=== PATIENT | male | born 1975 | race African-American/Black ===

== ENCOUNTER 2018-12-10 12:24 | Inpatient (IN) | payer BC ==
[2018-12-10] MEDS ORDERED: NORMAL SALINE 1000 ML 1,000 ML IV ONE (12:42)
--- NOTE | 2018-12-10 12:43 | ER Document Report ---
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 - Vital Signs Vital signs: Temp Pulse Resp BP Pulse Ox 98.7 F 75 18 154/84 H 96 12/10/18 12:38 12/10/18 12:38 12/10/18 12:38 12/10/18 12:38 12/10/18 12:38 - Laboratory Result Diagrams: 12/10/18 12:51 12/10/18 12:51 Laboratory results interpreted by me: 12/10/18 12/10/18 12:51 12:51 WBC 10.7 H Urine Ketones TRACE H Urine Urobilinogen 2.0 H Urine Ascorbic Acid 40 H Original Note: ED Medical Screen (RME) - General Chief Complaint: Abdominal Pain Stated Complaint: ABDOMINAL PAIN Time Seen by Provider: 12/10/18 12:41 Primary Care Provider: DESHAWN ÁLVAREZ [Primary Care Provider] - Follow up as needed Mode of Arrival: Ambulatory Information source: Patient Notes: Patient presents with lower pelvic pain that started yesterday. Patient states pain has been constant. Patient does report some discomfort with voiding although denies any penile symptoms. Patient denies any scrotal pain. Patient denies any nausea vomiting diarrhea or fever. Her last bowel movement was today and was normal. Patient with decreased appetite. I have greeted and performed a rapid initial assessment of this patient. A comprehensive ED assessment and evaluation of the patient, analysis of test results and completion of the medical decision making process will be conducted by additional ED providers. TRAVEL OUTSIDE OF THE [place] IN LAST 30 DAYS: No - Related Data Allergies/Adverse Reactions: No Known Allergies Allergy (Verified 12/10/18 12:25) Past Medical History - Social History Chew tobacco use (# tins/day): No Frequency of alcohol use: None Drug Abuse: None Renal/ Medical History: Denies: Hx Peritoneal Dialysis Physical Exam - Vital signs Vitals: Temp Pulse Resp BP Pulse Ox 98.7 F 75 18 154/84 H 96 12/10/18 12:38 12/10/18 12:38 12/10/18 12:38 12/10/18 12:38 12/10/18 12:38 - General General appearance: Appears well, Alert Notes: Suprapubic, right lower pelvic tenderness Course - Vital Signs Vital signs: Temp Pulse Resp BP Pulse Ox 98.7 F 75 18 154/84 H 96 12/10/18 12:38 12/10/18 12:38 12/10/18 12:38 12/10/18 12:38 12/10/18 12:38 Doctor's Discharge - Discharge Referrals: LOCALMD,NO [Primary Care Provider] - Follow up as needed
[2018-12-10] MEDS ORDERED: KETOROLAC TROMETHAMINE 60 MG/2 ML SDV ONE (12:47)
[2018-12-10] MEDS ORDERED: SUCCINYLCHOLINE CHLORIDE INJ 200 MG/10 ML VIAL ONE (12:47)
[2018-12-10] MEDS ORDERED: ROCURONIUM BROMIDE INJ 50 MG/5 ML VIAL IV ONE (12:47)
[2018-12-10 13:04] LABS: ABSOLUTE BASOPHILS # (AUTO) 0.1 10^3/uL (0.0-0.2); ABSOLUTE EOSINOPHILS # (AUTO) 0.2 10^3/uL (0.0-0.6); ABSOLUTE LYMPHOCYTES (AUTO) 3.1 10^3/uL (0.5-4.7); ABSOLUTE NEUT (AUTO) 6.3 10^3/uL (1.7-8.2); BASOPHILS % (AUTO) 0.6 % (0-2); EOSINOPHILS % (AUTO) 1.8 % (0-6); HEMATOCRIT 44.8 % (37.9-51.0); HEMOGLOBIN 15.4 g/dL (13.5-17.0); LYMPHOCYTES % (AUTO) 29.4 % (13-45); MEAN CORPUSCULAR HEMOGLOBIN 28.9 pg (27.0-33.4); MEAN CORPUSCULAR HGB CONC 34.4 g/dL (32.0-36.0); MEAN CORPUSCULAR VOLUME 84 fl (80-97); MONOCYTES % (AUTO) 9.2 % (3-13); PLATELET COUNT 166 10^3/uL (150-450); RED BLOOD COUNT 5.33 10^6/uL (4.35-5.55); RED CELL DISTRIBUTION WIDTH 13.5 % (11.5-14.0); TOTAL CELLS COUNTED % (AUTO) 100 %; WHITE BLOOD COUNT 10.7 10^3/uL (4.0-10.5)
[2018-12-10 13:21] LABS: APPEARANCE,URINE CLEAR; BILIRUBIN,URINE NEGATIVE (NEGATIVE); COLOR,URINE YELLOW; GLUCOSE, URINE NEGATIVE (NEGATIVE); KETONES,URINE TRACE mg/dL (NEGATIVE); LEUKOCYTE ESTERASE,URINE NEGATIVE (NEGATIVE); NITRITE,URINE NEGATIVE (NEGATIVE); PROTEIN,URINE NEGATIVE (NEGATIVE); URINE SPECIFIC GRAVITY 1.027
[2018-12-10 13:29] LABS: ALANINE AMINOTRANSFERASE 28 U/L (21-72); ALBUMIN 4.3 g/dL (3.5-5.0); ALKALINE PHOSPHATASE 68 U/L (38-126); ANION GAP 8 (5-19); ASPARTATE AMINO TRANSFERASE 30 U/L (17-59); BILIRUBIN,DIRECT 0.2 mg/dL (0.0-0.4); BILIRUBIN,TOTAL 1.2 mg/dL (0.2-1.3); BLOOD UREA NITROGEN 16 mg/dL (7-20); CALCIUM 9.2 mg/dL (8.4-10.2); CARBON DIOXIDE 26 mmol/L (22-30); CHLORIDE 106 mmol/L (98-107); GLUCOSE 98 mg/dL (75-110); POTASSIUM 3.9 mmol/L (3.6-5.0); SODIUM 140.2 mmol/L (137-145); TOTAL PROTEIN 7.1 g/dL (6.3-8.2)
--- NOTE | 2018-12-10 13:50 | RADIOLOGY REPORT (SQ) ---
EXAM DESCRIPTION: CT ABD/PELVIS WITH IV ONLY COMPLETED DATE/TIME: 12/10/2018 1:30 pm REASON FOR STUDY: pelvic, RLQ pain COMPARISON: None. TECHNIQUE: CT scan of the abdomen and pelvis performed using helical scanning technique with dynamic intravenous contrast injection. No oral contrast. Images reviewed with lung, soft tissue, and bone windows. Reconstructed coronal and sagittal MPR images reviewed. Delayed images for evaluation of the urinary system also acquired. All images stored on PACS. All CT scanners at this facility use dose modulation, iterative reconstruction, and/or weight based d osing when appropriate to reduce radiation dose to as low as reasonably achievable (ALARA). [facility]: Dose Right [facility]: CareDose [facility]: Dose Right [facility]: Teradose 4D [facility]: Ketto CONTRAST TYPE AND DOSE: contrast/concentration: Isovue 350.00 mg/ml; Total Contrast Delivered: 99.0 ml; Total Saline Delivered: 70.0 ml RENAL FUNCTION: None required. The patient is less than 50 years old. RADIATION DOSE: CT Rad equipment meets quality standard of care and radiation dose reduction techniq ues were employed. CTDIvol: 8.7 - 12.5 mGy. DLP: 1090 mGy-cm.. LIMITATIONS: None. FINDINGS: The appendix is mildly diffusely enlarged, measuring about 10 mm in diameter. This could indicate acute appendicitis. Findings discussed with Elissa castrejon in the emergency room, 1340 hour s. No periappendiceal free air or fluid. No abscess. LOWER CHEST: No significant findings. No nodules or infiltrates. LIVER: Normal size. No masses. No dilated ducts. SPLEEN: Normal size. No focal lesions. PANCREAS: No masses. No significant calcifications. No adjacent inflammation or peripancreatic fluid collections. Pancreatic duct not dilated. GALLBLADDER: No identified stones by CT criteria. No inflammatory changes to suggest cholecystitis. ADRENAL GLANDS: No significant masses or asymmetry. RIGHT KIDNEY AND URETER: No solid masses. No significant calcifications. No hydronephrosis or hyd roureter. LEFT KIDNEY AND URETER: No solid masses. No significant calcifications. No hydronephrosis or hydr oureter. AORTA AND VESSELS: No aneurysm. No dissection. Renal arteries, SMA, celiac without stenosis. RETROPERITONEUM: No retroperitoneal adenopathy, hemorrhage or masses. BOWEL AND PERITONEAL CAVITY: No masses or inflammatory changes. No free fluid or peritoneal masses. PELVIS: No mass. No free fluid. Normal bladder. ABDOMINAL WALL: No masses. No hernias. BONES: No significant or acute findings. OTHER: No other significant finding. IMPRESSION: Mildly diffusely enlarged appendix, could correlate with acute appendicitis. Findings d iscussed with the ED attending practitioner TECHNICAL DOCUMENTATION: JOB ID: [id number] Quality ID # [id number]: Final reports with documentation of one or more dose reduction techniques (e.g., Au tomated exposure control, adjustment of the mA and/or kV according to patient size, use of iterative reconstruction technique) 2010 [employer]- All Rights Reserved Reading location - IP/workstation name: [email or web address]
[2018-12-10] MEDS ORDERED: METRONIDAZOLE 500 MG/NS RTU 500 MG/100 ML RTUPB IV ONE (13:55)
[2018-12-10] MEDS ORDERED: CEFAZOLIN 2 GM/D5W RTU 2 GM/50 ML RTUPB IV ONE (13:57)
[2018-12-10 14:32] LABS: CHLAM PCR NOT DETECTED (NOT DETECT)
--- NOTE | 2018-12-10 15:05 | ER Document Report ---
ED General - General Chief Complaint: Abdominal Pain Stated Complaint: ABDOMINAL PAIN Time Seen by Provider: 12/10/18 12:41 Mode of Arrival: Ambulatory Information source: Patient, PENDING SALE TO [facility] Records Notes: 43-year-old male with no reported past medical history presents with complaint of right lower quadrant abdominal pain that started yesterday. Patient describes the pain as stabbing, constant and with radiation to the suprapubic region. Patient denies any associated fever, chills, nausea, vomiting. His last bowel movement was this morning. He denies any black or bloody stools. He has had no dysuria or penile discharge. He denies any alcohol or drug use but states he does smoke tobacco. He has no surgical history and takes no medication currently. He has not eaten yet today. TRAVEL OUTSIDE OF THE [place] IN LAST 30 DAYS: No - HPI Onset: Yesterday Onset/Duration: Gradual, Persistent Quality of pain: Sharp, Throbbing Severity: Moderate Pain Level: 2 Associated symptoms: denies: Body/muscle aches, Chest pain, Fever, Nausea, Vomiting, Shortness of breath Exacerbated by: Movement Relieved by: Denies Similar symptoms previously: No Recently seen / treated by doctor: No - Related Data Allergies/Adverse Reactions: No Known Allergies Allergy (Verified 12/10/18 12:25) Past Medical History - General Information source: Patient - Social History Smoking Status: Current Every Day Smoker Cigarette use (# per day): Yes - 10 Chew tobacco use (# tins/day): No Smoking Education Provided: Yes - Smoking cessation counseling was provided for 4 minutes at the bedside Frequency of alcohol use: None Drug Abuse: None Lives with: Spouse/Significant other Family History: Reviewed & Not Pertinent Patient has suicidal ideation: No Patient has homicidal ideation: No - Medical History Medical History: Negative Renal/ Medical History: Denies: Hx Peritoneal Dialysis Review of Systems - Review of Systems Notes: REVIEW OF SYSTEMS: CONSTITUTIONAL : Denies fever, chills, or sweats. Denies recent illness. Denies weight loss, recent hospitalizations. EENT: Denies visual changes, eye pain. Denies sore throat, oral lesions, difficulty swallowing. CARDIOVASCULAR: Denies chest pain. Denies palpitations. Denies lower extremity edema. RESPIRATORY: Denies cough. Denies shortness of breath, wheezing. GASTROINTESTINAL: Denies abdominal distention. Denies nausea, vomiting, or diarrhea. Denies blood in vomitus, stools, or per rectum. Denies black, tarry stools. Denies constipation. GENITOURINARY: Denies difficulty urinating, painful urination, frequency, blood in urine, testicular pain or penile discharge. MUSCULOSKELETAL: Denies back or neck pain or stiffness. Denies joint pain or swelling. SKIN: Denies rash, lesions or sores. HEMATOLOGIC : Denies easy bruising or bleeding. LYMPHATIC: Denies swollen glands. NEUROLOGICAL: Denies confusion or altered mental status. Denies loss of consciousness. Denies dizziness or lightheadedness. Denies headache. Denies weakness or paralysis. Denies problems difficulty with ambulation, slurred speech. Denies sensory loss, numbness, or tingling. Denies seizures. PSYCHIATRIC: Denies anxiety or stress. Denies depression, suicidal ideation, or Physical Exam - Vital signs Vitals: Temp Pulse Resp BP Pulse Ox 98.7 F 75 18 154/84 H 96 12/10/18 12:38 12/10/18 12:38 12/10/18 12:38 12/10/18 12:38 12/10/18 12:38 - Notes Notes: PHYSICAL EXAMINATION: GENERAL: Well-appearing, well-nourished and in no acute distress. HEAD: Atraumatic, normocephalic. EYES: Pupils equal round and reactive to light, extraocular movements intact, sclera anicteric, conjunctiva are normal. ENT: Nares patent, oropharynx clear without exudates. Moist mucous membranes. NECK: Normal range of motion, supple without lymphadenopathy LUNGS: Breath sounds clear to auscultation bilaterally and equal. No wheezes rales or rhonchi. HEART: Regular rate and rhythm without murmurs ABDOMEN: Positive McBurney's, positive tenderness in the right lower quadrant, positive heel strike. No guarding, no rebound. No masses appreciated. Musculoskeletal: Normal range of motion, no pitting or edema. No cyanosis. NEUROLOGICAL: Cranial nerves grossly intact. Normal speech, normal gait. Normal sensory, motor exams PSYCH: Normal mood, normal affect. SKIN: Warm, Dry, normal turgor, no rashes or lesions noted. Course - Re-evaluation Re-evalutation: Laboratory 06/25/19 06/25/19 06/25/19 12:51 12:51 12:51 WBC 10.7 H RBC 5.33 Hgb 15.4 Hct 44.8 MCV 84 MCH 28.9 MCHC 34.4 RDW 13.5 Plt Count 166 Seg Neutrophils % 59.0 Lymphocytes % 29.4 Monocytes % 9.2 Eosinophils % 1.8 Basophils % 0.6 Absolute Neutrophils 6.3 Absolute Lymphocytes 3.1 Absolute Monocytes 1.0 Absolute Eosinophils 0.2 Absolute Basophils 0.1 Sodium 140.2 Potassium 3.9 Chloride 106 Carbon Dioxide 26 Anion Gap 8 BUN 16 Creatinine 0.94 Est GFR ( Amer) > 60 Est GFR (Non-Af Amer) > 60 Glucose 98 Calcium 9.2 Total Bilirubin 1.2 Direct Bilirubin 0.2 Neonat Total Bilirubin Not Reportable Neonat Direct Bilirubin Not Reportable Neonat Indirect Bili Not Reportable AST 30 ALT 28 Alkaline Phosphatase 68 Total Protein 7.1 Albumin 4.3 Urine Color Urine Appearance Urine pH Ur Specific [place] Urine Protein Urine Glucose (UA) Urine Ketones Urine Blood Urine Nitrite Urine Bilirubin Urine Urobilinogen Ur Leukocyte Esterase Urine WBC (Auto) Urine RBC (Auto) Squamous Epi Cells Auto Urine Mucus (Auto) Urine Ascorbic Acid Chlamydia DNA (PCR) NOT DETECTED N.gonorrhoeae DNA (PCR) NOT DETECTED 12/10/18 12:51 WBC RBC Hgb Hct MCV MCH MCHC RDW Plt Count Seg Neutrophils % Lymphocytes % Monocytes % Eosinophils % Basophils % Absolute Neutrophils Absolute Lymphocytes Absolute Monocytes Absolute Eosinophils Absolute Basophils Sodium Potassium Chloride Carbon Dioxide Anion Gap BUN Creatinine Est GFR ( Amer) Est GFR (Non-Af Amer) Glucose Calcium Total Bilirubin Direct Bilirubin Neonat Total Bilirubin Neonat Direct Bilirubin Neonat Indirect Bili AST ALT Alkaline Phosphatase Total Protein Albumin Urine Color YELLOW Urine Appearance CLEAR Urine pH 5.0 Ur Specific [place] 1.027 Urine Protein NEGATIVE Urine Glucose (UA) NEGATIVE Urine Ketones TRACE H Urine Blood NEGATIVE Urine Nitrite NEGATIVE Urine Bilirubin NEGATIVE Urine Urobilinogen 2.0 H Ur Leukocyte Esterase NEGATIVE Urine WBC (Auto) 1 Urine RBC (Auto) 1 Squamous Epi Cells Auto <1 Urine Mucus (Auto) FEW Urine Ascorbic Acid 40 H Chlamydia DNA (PCR) N.gonorrhoeae DNA (PCR) Abdomen/Pelvis CT 12/10/18 12:42 IMPRESSION: Mildly diffusely enlarged appendix, could correlate with acute appendicitis. Findings discussed with the ED attending practitioner 43-year-old male presents with 1 day of right lower quadrant abdominal pain. Vital signs reviewed and within normal limits. Exam is significant for pain in the right lower quadrant. CT of the abdomen and pelvis are consistent with acute appendicitis. Patient will be taken to the OR. 12/10/18 15:04 Surgery consulted for possible appendicitis. 12/10/18 16:29 Dr. Butts surgicalist list has agreed to take the patient for an appendectomy. 12/10/18 17:16 Temp Pulse Resp BP Pulse Ox 98.5 F 70 16 140/84 H 98 12/10/18 16:35 12/10/18 16:35 12/10/18 16:35 12/10/18 16:35 12/10/18 16:35 - Vital Signs Vital signs: Temp Pulse Resp BP Pulse Ox 98.5 F 70 16 140/84 H 98 12/10/18 16:35 12/10/18 16:35 12/10/18 16:35 12/10/18 16:35 12/10/18 16:35 - Laboratory Result Diagrams: 12/10/18 12:51 12/10/18 12:51 Laboratory results interpreted by me: 12/10/18 12/10/18 12:51 12:51 WBC 10.7 H Urine Ketones TRACE H Urine Urobilinogen 2.0 H Urine Ascorbic Acid 40 H - Diagnostic Test Radiology reviewed: Image reviewed, Reports reviewed Discharge - Discharge Clinical Impression: Appendicitis Qualifiers: Appendicitis type: acute appendicitis Acute appendicitis type: unspecified acute appendicitis type Qualified Code(s): K35.80 - Unspecified acute appendicitis Abdominal pain Qualifiers: Abdominal location: right lower quadrant Qualified Code(s): R10.31 - Right lower quadrant pain Condition: Good Disposition: ADMITTED INPATIENT Admitting Provider: Surgicalist
[2018-12-10] MEDS ORDERED: ONDANSETRON HCL INJ/PF 4 MG/2 ML SDV IV ONE (15:17)
[2018-12-10] MEDS ORDERED: MORPHINE SULFATE 10 MG/ML INJ IV ONE (15:17)
--- NOTE | 2018-12-10 16:28 | PDOC H&P ---
History of Present Illness Patient complains of: Abdominal pain History of Present Illness: MILLIE NUR is a 43 year old male usual state of excellent health up until yesterday morning when he noted right lower quadrant abdominal pain that has progressively worsened with now pain with movement. He denies any prior history of this sort of pain. Denies any nausea or vomiting nor diarrhea nor fever. Patient feels some pelvic pressure with urination. Past Medical History Medical History: None Past Surgical History Past Surgical History: Reports: None Social History Smoking Status: Current Every Day Smoker Frequency of Alcohol Use: Rare Hx Recreational Drug Use: No Family History Parental Family History Reviewed: Yes Children Family History Reviewed: Yes Sibling(s) Family History Reviewed.: Yes Medication/Allergy Allergies/Adverse Reactions: No Known Allergies Allergy (Verified 12/10/18 12:25) Review of Systems All systems: reviewed and no additional remarkable complaints except as stated Gastrointestinal: PRESENT: as per HPI Genitourinary: PRESENT: other - Some pressure sensation with urination. Physical Exam Vital Signs: Temp Pulse Resp BP Pulse Ox 98.7 F 75 18 154/84 H 96 12/10/18 12:38 12/10/18 12:38 12/10/18 12:38 12/10/18 12:38 12/10/18 12:38 Intake & Output 12/09/18 12/10/18 12/11/18 06:59 06:59 06:59 Intake Total 1050 Balance 1050 Weight 92.9 kg General appearance: PRESENT: no acute distress, cooperative Neck exam: PRESENT: other - Supple with no masses and no tenderness. Respiratory exam: PRESENT: clear to auscultation vimal Cardiovascular exam: PRESENT: RRR GI/Abdominal exam: PRESENT: other - Soft, nondistended, tender in the right lower quadrant without guarding no rebound. Gentrourinary exam: PRESENT: other - No palpable hernia. No testicular masses and no testicular tenderness. No penile discharge Extremities exam: PRESENT: other - No swelling and no tenderness Neurological exam: PRESENT: alert Psychiatric exam: PRESENT: appropriate affect Skin exam: PRESENT: warm Results Laboratory Results: 12/10/18 12:51 12/10/18 12:51 12/10/18 12/10/18 12/10/18 12:51 12:51 12:51 WBC 10.7 H RBC 5.33 Hgb 15.4 Hct 44.8 MCV 84 MCH 28.9 MCHC 34.4 RDW 13.5 Plt Count 166 Seg Neutrophils % 59.0 Lymphocytes % 29.4 Monocytes % 9.2 Eosinophils % 1.8 Basophils % 0.6 Absolute Neutrophils 6.3 Absolute Lymphocytes 3.1 Absolute Monocytes 1.0 Absolute Eosinophils 0.2 Absolute Basophils 0.1 Sodium 140.2 Potassium 3.9 Chloride 106 Carbon Dioxide 26 Anion Gap 8 BUN 16 Creatinine 0.94 Est GFR ( Amer) > 60 Est GFR (Non-Af Amer) > 60 Glucose 98 Calcium 9.2 Total Bilirubin 1.2 AST 30 ALT 28 Alkaline Phosphatase 68 Total Protein 7.1 Albumin 4.3 Urine Color YELLOW Urine Appearance CLEAR Urine pH 5.0 Ur Specific [place] 1.027 Urine Protein NEGATIVE Urine Glucose (UA) NEGATIVE Urine Ketones TRACE H Urine Blood NEGATIVE Urine Nitrite NEGATIVE Ur Leukocyte Esterase NEGATIVE Urine WBC (Auto) 1 Urine RBC (Auto) 1 Impressions: Abdomen/Pelvis CT 12/10/18 12:42 IMPRESSION: Mildly diffusely enlarged appendix, could correlate with acute appendicitis. Findings discussed with the ED attending practitioner Assessment & Plan - Diagnosis (1) Appendicitis Qualifiers: Appendicitis type: acute appendicitis Is this a current diagnosis for this admission?: Yes Plan: Likely appendicitis. I have discussed with the patient risk and benefits of a laparoscopic appendectomy including risk of conversion to an open procedure, infection, bleeding, adjacent structure injury, stump leak, as well as mistaken diagnosis. Patient understands and agrees to proceed.
[2018-12-10] MEDS ORDERED: FENTANYL CITRATE INJ/PF 100 MCG/2 ML AMPUL ONE ×2 (16:35→18:37)
[2018-12-10] MEDS ORDERED: MIDAZOLAM 2 MG/2 ML INJ ONE (16:35)
[2018-12-10] MEDS ORDERED: ONDANSETRON HCL INJ/PF 4 MG/2 ML SDV ONE (16:35)
[2018-12-10] MEDS ORDERED: DEXAMETHASONE SOD PHOSPHATE INJ 4 MG/1 ML VIAL ONE (16:35)
[2018-12-10] MEDS ORDERED: SUGAMMADEX SODIUM 200 MG/2 ML SDV IV ONE (16:36)
[2018-12-10] MEDS ORDERED: PROPOFOL INJ 200 MG/20 ML VIAL IV ONE (16:36)
[2018-12-10] MEDS ORDERED: BUPIVACAINE HCL 0.25 % INJ/PF (2.5 MG/1 ML) 30 ML VIAL ONE (16:45)
[2018-12-10] MEDS ORDERED: MORPHINE SULFATE 10 MG/ML INJ IV PRN (17:44)
[2018-12-10] MEDS ORDERED: DIPHENHYDRAMINE HCL 50 MG/ML VIAL IV PRN (17:44)
[2018-12-10] MEDS ORDERED: PROMETHAZINE HCL INJ 25 MG/1 ML VIAL IV PRN ×2 (17:44)
[2018-12-10] MEDS ORDERED: MEPERIDINE HCL/PF INJ 25 MG/1 ML DISP.SYRIN IV PRN (17:44)
[2018-12-10] MEDS ORDERED: FENTANYL CITRATE INJ/PF 100 MCG/2 ML AMPUL IV PRN ×3 (17:44)
[2018-12-10] MEDS ORDERED: ONDANSETRON HCL INJ/PF 4 MG/2 ML SDV IV PRN (17:44)
[2018-12-10] MEDS ORDERED: ONDANSETRON 4 MG TAB.RAPDIS PO PRN (18:22)
--- NOTE | 2018-12-10 18:22 | Operative Report ---
Operative Report DATE OF SURGERY: 12/10/18 PREOPERATIVE DIAGNOSIS: Appendicitis POSTOPERATIVE DIAGNOSIS: Appendicitis OPERATION: Laparoscopic appendectomy SURGEON: LEE PATTERSON ANESTHESIA: GA TISSUE REMOVED OR ALTERED: Appendix COMPLICATIONS: None ESTIMATED BLOOD LOSS: Minimal INTRAOPERATIVE FINDINGS: Distended inflamed midportion of the appendix. PROCEDURE: Informed consent was obtained. Patient was brought to the operating room placed on the operating room table in the supine position. After satisfactory induction of general anesthesia patient's abdomen was prepped and draped in usual sterile fashion. A supraumbilical midline incision was made dissection carried down through the fascia and the peritoneal cavity was entered. Nunez trocar was inserted and pneumoperitoneum produced with good patient toleration. A 5 mm trocar was placed in the right lateral abdomen lateral to the rectus above the level of the umbilicus. Another 5 mm trocar was placed in the left lateral abdomen lateral to the rectus below the level of the umbilicus. Patient was placed in a Trendelenburg position with the right side up. The appendix appeared inflamed and distended involving the midportion of the appendix. A plane was created between the mesoappendix and the appendix at the base of the appendix. Using a Endo MERLYN stapling device the appendix was taken flush with the cecum. The stump closure appeared secure. The mesoappendix was taken using a vascular load of the Endo MERLYN stapling device. Hemostasis appeared good. The appendix was placed in an Endobag and removed through the Nunez trocar site fascial defect. All trochars were removed under the direct vision of the lap aroscope to ensure hemostasis. The Nunez trocar site fascial defect was closed with interrupted Vicryl sutures. All skin incisions were closed with subcuticular interrupted Monocryl sutures. Marcaine was injected at the operative sites. Patient tolerated procedure well with no apparent complications and was taken to the recovery area in stable condition.
[2018-12-10] MEDS ORDERED: ACETAMINOPHEN 1,000 MG/100 ML RTUPB IV ONE (19:22)
[2018-12-10] MEDS: NORMAL SALINE 1000 ML 1,000 ML IV PRN (20:01)
[2018-12-10] MEDS: MORPHINE SULFATE 10 MG/ML INJ IV PRN (21:37)
--- NOTE | 2018-12-10 22:55 | PDOC PROGRESS REPORT ---
Subjective Progress Note for:: 12/10/18 Subjective:: Feels better. Has some periumbilical pain that is improving. Reason For Visit: APPENDICITIS Physical Exam Vital Signs: Temp Pulse Resp BP Pulse Ox 98.0 F 71 18 135/75 H 95 12/10/18 21:31 12/10/18 21:31 12/10/18 21:31 12/10/18 21:31 12/10/18 21:31 Intake & Output 12/09/18 12/10/18 12/11/18 06:59 06:59 06:59 Intake Total 2950 Output Total 310 Balance 2640 Weight 92.9 kg General appearance: PRESENT: no acute distress, cooperative Respiratory exam: PRESENT: clear to auscultation vimal Cardiovascular exam: PRESENT: RRR GI/Abdominal exam: PRESENT: other - Soft, moderate tenderness at the periumbilical region without peritoneal signs. Right lower quadrant abdominal tenderness is markedly improved from his preoperative state. Results Laboratory Results: 12/10/18 12:51 12/10/18 12:51 12/10/18 12/10/18 12/10/18 12:51 12:51 12:51 WBC 10.7 H RBC 5.33 Hgb 15.4 Hct 44.8 MCV 84 MCH 28.9 MCHC 34.4 RDW 13.5 Plt Count 166 Seg Neutrophils % 59.0 Lymphocytes % 29.4 Monocytes % 9.2 Eosinophils % 1.8 Basophils % 0.6 Absolute Neutrophils 6.3 Absolute Lymphocytes 3.1 Absolute Monocytes 1.0 Absolute Eosinophils 0.2 Absolute Basophils 0.1 Sodium 140.2 Potassium 3.9 Chloride 106 Carbon Dioxide 26 Anion Gap 8 BUN 16 Creatinine 0.94 Est GFR ( Amer) > 60 Est GFR (Non-Af Amer) > 60 Glucose 98 Calcium 9.2 Total Bilirubin 1.2 AST 30 ALT 28 Alkaline Phosphatase 68 Total Protein 7.1 Albumin 4.3 Urine Color YELLOW Urine Appearance CLEAR Urine pH 5.0 Ur Specific [place] 1.027 Urine Protein NEGATIVE Urine Glucose (UA) NEGATIVE Urine Ketones TRACE H Urine Blood NEGATIVE Urine Nitrite NEGATIVE Ur Leukocyte Esterase NEGATIVE Urine WBC (Auto) 1 Urine RBC (Auto) 1 Impressions: Abdomen/Pelvis CT 12/10/18 12:42 IMPRESSION: Mildly diffusely enlarged appendix, could correlate with acute appendicitis. Findings discussed with the ED attending practitioner Assessment & Plan - Diagnosis (1) Appendicitis Qualifiers: Appendicitis type: acute appendicitis Acute appendicitis type: unspecified acute appendicitis type Qualified Code(s): K35.80 - Unspecified acute appendicitis Is this a current diagnosis for this admission?: Yes Plan: Looks okay postoperatively. Mainly pain at the Nunez trocar site. Patient is very hungry but I am reluctant to let him eat in the middle of the night on postop day 0. Likely discharge patient home tomorrow.
[2018-12-11] MEDS: MORPHINE SULFATE 10 MG/ML INJ IV PRN (02:30)
[2018-12-11] MEDS: NORMAL SALINE 1000 ML 1,000 ML IV PRN (05:00)
[2018-12-11 06:47] LABS: HEMATOCRIT 37.1 % (37.9-51.0); MEAN CORPUSCULAR HEMOGLOBIN 28.6 pg (27.0-33.4); MEAN CORPUSCULAR HGB CONC 33.8 g/dL (32.0-36.0); MEAN CORPUSCULAR VOLUME 85 fl (80-97); PLATELET COUNT 157 10^3/uL (150-450); RED BLOOD COUNT 4.39 10^6/uL (4.35-5.55); RED CELL DISTRIBUTION WIDTH 13.8 % (11.5-14.0); WHITE BLOOD COUNT 17.3 10^3/uL (4.0-10.5)
[2018-12-11 06:48] LABS: HEMOGLOBIN 12.6 g/dL (13.5-17.0)
[2018-12-11 07:00] LABS: ANION GAP 7 (5-19); BLOOD UREA NITROGEN 14 mg/dL (7-20); CALCIUM 8.3 mg/dL (8.4-10.2); CARBON DIOXIDE 23 mmol/L (22-30); CHLORIDE 107 mmol/L (98-107); GLUCOSE 103 mg/dL (75-110); POTASSIUM 4.3 mmol/L (3.6-5.0); SODIUM 137.4 mmol/L (137-145)
[2018-12-11] MEDS ORDERED: OXYCODONE-ACETAMINOPHEN 5-325 MG TABLET PO ONE ×2 (09:30→13:30)
[2018-12-11 13:08] VITALS: BP 129/71
[2018-12-11] MEDS ORDERED: OXYCODONE-ACETAMINOPHEN 5-325 MG TABLET PO PRN (13:29)
--- NOTE | 2018-12-11 14:49 | DISCHARGE SUMMARY E ---
Discharge Summary NAME: MILLIE NUR : 1975 AGE: 43Y ADMITTED: 12/10/2018 DISCHARGED: 12/11/2018 FINAL DIAGNOSIS: ACUTE APPENDICITIS. PROCEDURE DONE: LAPAROSCOPIC APPENDECTOMY 12/10/2018. SURGEON: Lucian Butts MD HOSPITAL COURSE: This is a 43-year-old male complaining of abdominal pain 24 hours prior to being seen in the ED. CT scan of the abdomen in the ED showed acute appendicitis. The patient was immediately taken to the OR on 12/10/2018 for laparoscopic appendectomy. Acute appendicitis was identified and noted by Dr. Butts during surgery. Postoperatively, the patient did relatively well. The abdomen is soft, slightly distended. Incisions are clean and dry and the patient is passing flatus. Tolerated soft diet; however, his white count is slightly elevated at about 17,000. He was then discharged on p.o. Percocet 5/325 one q.4 hours as needed for pain x10, and Keflex 500 mg p.o. three times a day for the next 5 days, and Zofran 4 mg p.o. q.8 hours as needed for nausea and vomiting. The patient is discharged improved on 12/11/2018 with the above final diagnosis. The patient is to be followed up in the surgical clinic in 1-2 weeks. The patient was advised not to do any heavy lifting more than 10-15 pounds until seen in the clinic. DICTATING PHYSICIAN: SHANTANU AYON M.D. [id number] PHY#: [id number] ID: [id number] JOB#: [id number] ACCT: [id number] cc:Kati CASTANO M.D. >
== END 2018-12-11 16:04 | disposition home or self-care (01) | DRG 343 ==
LOC: ER 12:24 → EH 16:44 → 2N 19:39
PROVIDERS: ADMIT Surgery; ATTEND Surgery
PROC: 0DTJ4ZZ Resection of Appendix, Percutaneous Endoscopic Approach (ICD-10-PCS; principal; 2018-12-10 17:00)
DX: K35.80 Unspecified acute appendicitis (principal); F17.210 Nicotine dependence, cigarettes, uncomplicated
CPT/HCPCS: 36415; 74177; 80048; 80053; 81001; 840; 85025; 85027; 87491; 87591; 88304; J0131; J0330; J0690; J1100; J1885; J2250; J2270; J2405; J2704; J3010; J3490; J7030

== ENCOUNTER 2018-12-13 08:26 | Emergency (ER) | payer OTHER, BC ==
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
[2018-12-13] MEDS ORDERED: OXYCODONE-ACETAMINOPHEN 5-325 MG TABLET PO ONE (10:19)
[2018-12-13 10:57] VITALS: BP 158/105
== END 2018-12-13 10:54 | disposition home or self-care (01) ==
LOC: ER 08:26
DX: S00.83XA Contusion of other part of head, initial encounter (principal); S99.921A Unspecified injury of right foot, initial encounter; S16.1XXA Strain of muscle, fascia and tendon at neck level, initial encounter; F17.210 Nicotine dependence, cigarettes, uncomplicated; V89.2XXA Person injured in unspecified motor-vehicle accident, traffic, initial encounter
CPT/HCPCS: 99283; 70450; 72125; L0120

== ENCOUNTER 2019-02-19 07:16 | Emergency (ER) | payer BC ==
--- NOTE | 2019-02-19 08:17 | ER Document Report ---
Entered by KRYSTYNA HAYES SCRIBE 02/19/19 0803 Acting as scribe for:ESA ROBERT MD ED GI/ - General Chief Complaint: Flank Pain Stated Complaint: FLANK PAIN Time Seen by Provider: 02/19/19 07:55 Mode of Arrival: Ambulatory Information source: Patient Notes: Patient is a 43 year old male that presents to the emergency department today with complaints of bilateral lower back pain x2 days. Patient denies any new or strenuous activity that he thinks could be causing this pain. Patient states moving around exacerbated his pain this morning. Patient took a Percocet that he had at home left over from a previous prescription which did take the edge off of his pain. TRAVEL OUTSIDE OF THE [place] IN LAST 30 DAYS: No - Related Data Allergies/Adverse Reactions: No Known Allergies Allergy (Verified 02/19/19 07:18) Past Medical History - General Information source: Patient - Social History Smoking Status: Current Every Day Smoker Cigarette use (# per day): Yes Frequency of alcohol use: None Drug Abuse: None Lives with: Family Family History: Reviewed & Not Pertinent Past Surgical History: Reports: Hx Appendectomy - 12/10/2018 Review of Systems - Review of Systems Constitutional: No symptoms reported EENT: No symptoms reported Cardiovascular: No symptoms reported Respiratory: No symptoms reported Gastrointestinal: No symptoms reported Genitourinary: No symptoms reported Male Genitourinary: No symptoms reported Musculoskeletal: See HPI, Back pain Skin: No symptoms reported Hematologic/Lymphatic: No symptoms reported Neurological/Psychological: No symptoms reported -: Yes All other systems reviewed and negative Physical Exam - Vital signs Vitals: Temp Pulse Resp BP Pulse Ox 97.5 F 64 16 165/89 H 95 02/19/19 07:20 02/19/19 07:20 02/19/19 07:20 02/19/19 07:20 02/19/19 07:20 Course - Re-evaluation Re-evalutation: 02/19/19 09:26 Patient's blood pressure is elevated today. Reviewing the records shows on his previous visits here his blood pressure was elevated. He is advised today that he has high blood pressure and should see a local medical doctor to manage his blood pressure. - Vital Signs Vital signs: Temp Pulse Resp BP Pulse Ox 97.5 F 64 16 165/89 H 95 02/19/19 07:20 02/19/19 07:20 02/19/19 07:20 02/19/19 07:20 02/19/19 07:20 - Laboratory Result Diagrams: 02/19/19 08:35 02/19/19 08:35 Laboratory results interpreted by me: 02/19/19 08:35 Creatine Kinase 221 H Discharge - Discharge Clinical Impression: Low back pain Qualifiers: Chronicity: acute Back pain laterality: bilateral Sciatica presence: without sciatica Qualified Code(s): M54.5 - Low back pain High blood pressure Qualifiers: Hypertension type: essential hypertension Qualified Code(s): I10 - Essential (primary) hypertension Condition: Stable Disposition: HOME, SELF-CARE Additional Instructions: Low Back Pain: Three out of every four people will have an episode of disabling back pain during their lifetime. Most commonly the pain is due to straining of the muscles and ligaments in the low back. Usual treatment includes: (1) Rest on a firm surface. Avoid lying on your stomach. (2) Ice pack the painful area. After a few days, gentle heat may be used in termittently to relax the area, or ice packs can be continued. (3) Medication may be needed --antiinflammatory medicines such as ibuprofen or Aleve are commonly used. (4) As the back improves, exercises are prescribed to strengthen the back and abdominal muscles. Your doctor will advise you on the proper care for your back at each stage in your recovery. You may be better in a few days -- or healing may take several weeks. If new symptoms of a "herniated disc" (radiation of pain, numbness, or tingling down the back of the leg or weakness in the leg) occur, you should be re-examined. Further testing may be necessary. High Blood Pressure: Your blood pressure is high. This is called "hypertension." Your history and exam suggest that this is not a temporary problem. You need treatment of your blood pressure. Pre-hypertension/Hypertension: The patient has been informed that they may have pre-hypertension or Hypertension based on a blood pressure reading in the emergency department. I recommend that the patient call the primary care provider listed on their discharge instructions or a physician of their choice this wee to arrange follow up for further evaluation of possible pre- hypertension or Hypertension. If left untreated, high blood pressure greatly increases your risk of heart attack and stroke. Please don't ignore this problem. If you have blood pressure medicine but aren't using it regularly, start taking it again. Some simple things you can do to help are: Get some aerobic exercise for at least 20 minutes on a daily basis. (See your doctor before beginning any new exercise program.) Eat a low-fat diet. Lose excess weight. Avoid salty foods and avoid adding salt to any of the foods you eat. Avoid diet pills, decongestants, "energizing" herbs, and other medicines that elevate blood pressure. There are many different medicines that treat blood pressure. If your medication causes unpleasant side effects, call your doctor. There are others you can try. Treating hypertension is a life-long investment in your health. Take Tylenol and Motrin or Aleve for your low back pain if needed. Follow-up with a local medical doctor to manage your high blood pressure. RETURN TO THE EMERGENCY ROOM IF ANY NEW OR WORSENING SYMPTOMS. Scribe Attestation: 02/19/19 08:29 I personally performed the services described in the documentation, reviewed and edited the documentation which was dictated to the scribe in my presence, and it accurately records my words and actions. I personally performed the services described in the documentation, reviewed and edited the documentation which was dictated to the scribe in my presence, and it accurately records my words and actions.
[2019-02-19 08:48] LABS: ABSOLUTE BASOPHILS # (AUTO) 0.1 10^3/uL (0.0-0.2); ABSOLUTE EOSINOPHILS # (AUTO) 0.3 10^3/uL (0.0-0.6); ABSOLUTE LYMPHOCYTES (AUTO) 1.7 10^3/uL (0.5-4.7); ABSOLUTE MONOCYTES (AUTO) 0.8 10^3/uL (0.1-1.4); ABSOLUTE NEUT (AUTO) 4.2 10^3/uL (1.7-8.2); BASOPHILS % (AUTO) 0.9 % (0-2); EOSINOPHILS % (AUTO) 4.1 % (0-6); HEMATOCRIT 43.1 % (37.9-51.0); HEMOGLOBIN 14.4 g/dL (13.5-17.0); LYMPHOCYTES % (AUTO) 24.5 % (13-45); MEAN CORPUSCULAR HEMOGLOBIN 28.1 pg (27.0-33.4); MEAN CORPUSCULAR HGB CONC 33.3 g/dL (32.0-36.0); MEAN CORPUSCULAR VOLUME 84 fl (80-97); MONOCYTES % (AUTO) 11.2 % (3-13); PLATELET COUNT 156 10^3/uL (150-450); RED BLOOD COUNT 5.12 10^6/uL (4.35-5.55); SEGMENTED NEUTROPHILS % (AUTO) 59.3 % (42-78); TOTAL CELLS COUNTED % (AUTO) 100 %
[2019-02-19 08:50] LABS: APPEARANCE,URINE CLEAR; BILIRUBIN,URINE NEGATIVE (NEGATIVE); COLOR,URINE YELLOW; GLUCOSE, URINE NEGATIVE (NEGATIVE); KETONES,URINE NEGATIVE (NEGATIVE); LEUKOCYTE ESTERASE,URINE NEGATIVE (NEGATIVE); NITRITE,URINE NEGATIVE (NEGATIVE); PROTEIN,URINE NEGATIVE (NEGATIVE); UROBILINOGEN,URINE NEGATIVE mg/dL (<2.0)
[2019-02-19 09:05] LABS: ALKALINE PHOSPHATASE 57 U/L (38-126); ANION GAP 7 (5-19); ASPARTATE AMINO TRANSFERASE 19 U/L (17-59); BILIRUBIN,DIRECT 0.2 mg/dL (0.0-0.4); BILIRUBIN,TOTAL 0.5 mg/dL (0.2-1.3); BLOOD UREA NITROGEN 17 mg/dL (7-20); CALCIUM 9.1 mg/dL (8.4-10.2); CARBON DIOXIDE 28 mmol/L (22-30); CHLORIDE 107 mmol/L (98-107); CREATINE KINASE 221 U/L (55-170); GLUCOSE 100 mg/dL (75-110); POTASSIUM 3.7 mmol/L (3.6-5.0); TOTAL PROTEIN 6.7 g/dL (6.3-8.2)
[2019-02-19 09:45] VITALS: BP 148/90
== END 2019-02-19 09:30 | disposition home or self-care (01) ==
LOC: ER 07:16
DX: M54.5 Low back pain (principal); I10 Essential (primary) hypertension; F17.210 Nicotine dependence, cigarettes, uncomplicated
CPT/HCPCS: 36415; 80053; 81001; 82550; 85025; 99284

== ENCOUNTER 2019-07-21 13:33 | Emergency (ER) | payer OTHER, BC ==
[2019-07-21] MEDS ORDERED: MORPHINE SULFATE 10 MG/ML INJ IV ONE ×2 (13:43→14:17)
[2019-07-21] MEDS ORDERED: ONDANSETRON HCL INJ/PF 4 MG/2 ML SDV IV ONE (13:43)
[2019-07-21 13:57] LABS: ABSOLUTE BASOPHILS # (AUTO) 0.1 10^3/uL (0.0-0.2); ABSOLUTE EOSINOPHILS # (AUTO) 0.3 10^3/uL (0.0-0.6); ABSOLUTE LYMPHOCYTES (AUTO) 5.8 10^3/uL (0.5-4.7); ABSOLUTE MONOCYTES (AUTO) 0.9 10^3/uL (0.1-1.4); BASOPHILS % (AUTO) 0.8 % (0-2); EOSINOPHILS % (AUTO) 2.2 % (0-6); HEMATOCRIT 47.2 % (37.9-51.0); HEMOGLOBIN 16.2 g/dL (13.5-17.0); LYMPHOCYTES % (AUTO) 48.1 % (13-45); MEAN CORPUSCULAR HEMOGLOBIN 28.9 pg (27.0-33.4); MEAN CORPUSCULAR HGB CONC 34.3 g/dL (32.0-36.0); MEAN CORPUSCULAR VOLUME 84 fl (80-97); MONOCYTES % (AUTO) 7.8 % (3-13); PLATELET COUNT 203 10^3/uL (150-450); SEGMENTED NEUTROPHILS % (AUTO) 41.1 % (42-78); TOTAL CELLS COUNTED % (AUTO) 100 %; WHITE BLOOD COUNT 12.1 10^3/uL (4.0-10.5)
[2019-07-21 14:16] LABS: ALBUMIN 4.6 g/dL (3.5-5.0); ALKALINE PHOSPHATASE 71 U/L (38-126); ANION GAP 8 (5-19); ASPARTATE AMINO TRANSFERASE 28 U/L (17-59); BILIRUBIN,TOTAL 0.8 mg/dL (0.2-1.3); BLOOD UREA NITROGEN 21 mg/dL (7-20); CALCIUM 9.5 mg/dL (8.4-10.2); CARBON DIOXIDE 24 mmol/L (22-30); CHLORIDE 108 mmol/L (98-107); GLUCOSE 143 mg/dL (75-110); POTASSIUM 4.2 mmol/L (3.6-5.0); TOTAL PROTEIN 7.6 g/dL (6.3-8.2)
[2019-07-21] MEDS ORDERED: KETOROLAC TROMETHAMINE INJ/PF 30 MG/1 ML SDV IV ONE (14:17)
[2019-07-21] MEDS ORDERED: NORMAL SALINE 1000 ML 1,000 ML IV ONE (14:18)
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
[2019-07-21 16:09] VITALS: BP 194/87
== END 2019-07-21 16:09 | disposition home or self-care (01) ==
LOC: ER 13:33
DX: S30.811A Abrasion of abdominal wall, initial encounter (principal); S50.812A Abrasion of left forearm, initial encounter; S50.811A Abrasion of right forearm, initial encounter; S80.811A Abrasion, right lower leg, initial encounter; S50.319A Abrasion of unspecified elbow, initial encounter; S40.811A Abrasion of right upper arm, initial encounter; M25.552 Pain in left hip; V23.4XXA Motorcycle driver injured in collision with car, pick-up truck or van in traffic accident, initial encounter; Y92.411 Interstate highway as the place of occurrence of the external cause; F17.210 Nicotine dependence, cigarettes, uncomplicated
CPT/HCPCS: 96376; 99283; 96361; 96374; 96375; 36415; 85025; 80053; J1885; J2270; J2405; J7030

== ENCOUNTER 2019-07-24 10:10 | Emergency (ER) | payer OTHER, BC ==
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
[2019-07-24 14:06] VITALS: BP 170/80
== END 2019-07-24 14:05 | disposition home or self-care (01) ==
LOC: ER 10:10
DX: S70.02XD Contusion of left hip, subsequent encounter (principal); S60.222D Contusion of left hand, subsequent encounter; S09.90XD Unspecified injury of head, subsequent encounter; V29.9XXD Motorcycle rider (driver) (passenger) injured in unspecified traffic accident, subsequent encounter; F17.200 Nicotine dependence, unspecified, uncomplicated
CPT/HCPCS: 70450

== ENCOUNTER 2020-06-05 16:55 | Emergency (ER) | payer BC, OTHER ==
[2020-06-05] MEDS ORDERED: DIPHENHYDRAMINE HCL 50 MG/ML VIAL IV ONE (17:14)
[2020-06-05] MEDS ORDERED: PROCHLORPERAZINE EDISYLATE INJ 10 MG/2 ML VIAL IV ONE (17:14)
[2020-06-05] MEDS ORDERED: NORMAL SALINE 1000 ML 1,000 ML IV ONE (17:14)
--- NOTE | 2020-06-05 17:16 | ER Document Report ---
ED Medical Screen (RME) - General Chief Complaint: Chest Pain Stated Complaint: HEADACHE Time Seen by Provider: 06/05/20 17:03 Primary Care Provider: JULY PAREDES MD [Primary Care Provider] - Follow up as needed Notes: Patient presents complaining of headache with nausea vomiting and diarrhea that started yesterday. Headache pain has gradually worsened throughout the day. Patient reports vomiting 3 times and having diarrhea x4 episodes. Patient reports subjective fevers at home with occasional blurred vision. Patient states that he did wake up at 230 this morning with midsternal chest pain. Patient reports mild cough. Patient denies any significant medical history. I have greeted and performed a rapid initial assessment of this patient. A comprehensive ED assessment and evaluation of the patient, analysis of test results and completion of the medical decision making process will be conducted by additional ED providers. TRAVEL OUTSIDE OF THE [place] IN LAST 30 DAYS: No - Related Data Allergies/Adverse Reactions: No Known Allergies Allergy (Verified 07/24/19 10:35) Past Medical History Renal/ Medical History: Denies: Hx Peritoneal Dialysis Past Surgical History: Reports: Hx Appendectomy - 12/10/2018 Physical Exam - Vital signs Vitals: Temp Pulse Resp BP Pulse Ox 98.1 F 78 16 178/98 H 97 06/05/20 17:04 06/05/20 17:04 06/05/20 17:04 06/05/20 17:04 06/05/20 17:04 - Respiratory Respiratory status: No respiratory distress Chest status: Tender Breath sounds: Normal - Cardiovascular Rhythm: Regular Heart sounds: S1 appreciated, S2 appreciated Course - Vital Signs Vital signs: Temp Pulse Resp BP Pulse Ox 98.1 F 78 16 178/98 H 97 06/05/20 17:04 06/05/20 17:04 06/05/20 17:04 06/05/20 17:04 06/05/20 17:04 Doctor's Discharge - Discharge Referrals: JULY PAREDES MD [Primary Care Provider] - Follow up as needed
[2020-06-05 19:16] LABS: ABSOLUTE BASOPHILS # (AUTO) 0.1 10^3/uL (0.0-0.2); ABSOLUTE EOSINOPHILS # (AUTO) 0.3 10^3/uL (0.0-0.6); ABSOLUTE LYMPHOCYTES (AUTO) 3.6 10^3/uL (0.5-4.7); ABSOLUTE MONOCYTES (AUTO) 0.7 10^3/uL (0.1-1.4); ABSOLUTE NEUT (AUTO) 3.9 10^3/uL (1.7-8.2); BASOPHILS % (AUTO) 1.1 % (0-2); EOSINOPHILS % (AUTO) 3.6 % (0-6); HEMATOCRIT 43.5 % (37.9-51.0); HEMOGLOBIN 14.8 g/dL (13.5-17.0); LYMPHOCYTES % (AUTO) 41.5 % (13-45); MEAN CORPUSCULAR HEMOGLOBIN 29.1 pg (27.0-33.4); MEAN CORPUSCULAR HGB CONC 34.1 g/dL (32.0-36.0); MEAN CORPUSCULAR VOLUME 85 fl (80-97); MONOCYTES % (AUTO) 7.8 % (3-13); PLATELET COUNT 191 10^3/uL (150-450); RED BLOOD COUNT 5.09 10^6/uL (4.35-5.55); RED CELL DISTRIBUTION WIDTH 13.7 % (11.5-14.0); TOTAL CELLS COUNTED % (AUTO) 100 %; WHITE BLOOD COUNT 8.6 10^3/uL (4.0-10.5)
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
[2020-06-05 19:31] LABS: ALBUMIN 4.1 g/dL (3.5-5.0); ALKALINE PHOSPHATASE 61 U/L (38-126); ANION GAP 6 (5-19); ASPARTATE AMINO TRANSFERASE 27 U/L (17-59); BILIRUBIN,DIRECT 0.1 mg/dL (0.0-0.4); BILIRUBIN,TOTAL 0.5 mg/dL (0.2-1.3); BLOOD UREA NITROGEN 22 mg/dL (7-20); CALCIUM 9.3 mg/dL (8.4-10.2); CARBON DIOXIDE 29 mmol/L (22-30); CHLORIDE 105 mmol/L (98-107); GLUCOSE 107 mg/dL (75-110); POTASSIUM 3.9 mmol/L (3.6-5.0); TOTAL PROTEIN 7.1 g/dL (6.3-8.2)
[2020-06-05 19:38] VITALS: BP 167/83
--- NOTE | 2020-06-05 21:30 | ER Document Report ---
Doctor's Note Notes: 06/05/20 21:30 I sent of to evaluate this patient. I reviewed all of his notes, will labs, and images. It appears he has some mild elevation of his renal function, but otherwise unremarkable. EKG was not performed. I went back to evaluate the patient was notified that he was not present. We waited for some time, he did not return. I did not see, interview, or evaluate the patient in any way beyond chart review.
== END 2020-06-05 20:30 | disposition left against medical advice (07) ==
LOC: ER 16:55
DX: R51.9 Headache, unspecified (principal); R11.2 Nausea with vomiting, unspecified; R19.7 Diarrhea, unspecified; H53.8 Other visual disturbances; R07.9 Chest pain, unspecified; R05 Cough; Z53.20 Procedure and treatment not carried out because of patient's decision for unspecified reasons
CPT/HCPCS: 99281; 36415; 83690; 83735; 85025; 80053; 84484; 71045; J1200; J0780; J7030